=== PATIENT | male | born 1985 | race Caucasian/White ===

== ENCOUNTER 2024-03-08 21:47 | Emergency (ER) | payer SELFPAY ==
[2024-03-08 22:29] LABS: BASOPHILS ABSOLUTE AUTO 0.05 10^3/uL (0.00-0.50); BASOPHILS PERCENT AUTO 0.7 % (0-1); EOSINOPHILS PERCENT AUTO 4.1 % (0-6); HEMATOCRIT 41.9 % (42.0-52.0); IMMATURE GRAN ABSOLUTE AUTO 0.01 10^3/uL (0.00-0.49); IMMATURE GRAN PERCENT AUTO 0.1 % (0.0-4.9); LYMPHOCYTES ABSOLUTE AUTO 2.37 10^3/uL (0.60-5.00); LYMPHOCYTES PERCENT AUTO 32.5 % (24-44); MEAN CORPUSCULAR HGB CONC 33.4 g/dL (32.0-36.0); MEAN CORPUSCULAR VOLUME 92.7 fL (83.0-97.0); MONOCYTES ABSOLUTE AUTO 0.37 10^3/uL (0.00-1.50); MONOCYTES PERCENT AUTO 5.1 % (0-10); NEUTROPHILS PERCENT AUTO 57.5 % (41-71); PLATELET COUNT,PLT 227 10^3/uL (150-400); RED BLOOD CELL COUNT 4.52 x10^6/uL (4.50-6.00); WHITE BLOOD CELL COUNT,WBC 7.3 10^3/uL (4.0-11.0)
[2024-03-08 22:46] LABS: ALANINE AMINOTRANSFERASE,ALT 30 U/L (12-78); ALBUMIN 3.9 g/dL (3.4-5.0); ALKALINE PHOSPHATASE 51 U/L (46-116); ASPARTATE AMNIOTRANSFERASE,AST 18 U/L (15-37); BILIRUBIN TOTAL 0.6 mg/dL (0.0-1.0); BLOOD UREA NITROGEN,BUN 11 mg/dL (7-18); CALCIUM 8.7 mg/dL (8.4-10.1); CARBON DIOXIDE,CO2 26 mmol/L (21-32); CHLORIDE,CL 104 mEq/L (98-106); CREATININE 1.1 mg/dL (0.7-1.3); EST CRCL DRUG DOSING (CG) 95.08 mL/min; GLUCOSE RANDOM 97 mg/dL (75-99); POTASSIUM,K 3.7 mEq/L (3.5-5.0); PRO B-TYPE NATRIUR PEPT,BNPPRO 62 pg/mL (0-1000); PROTEIN TOTAL,TP 7.2 g/dL (6.4-8.2); SODIUM,NA 142 mEq/L (136-145)
[2024-03-08 22:47] LABS: ESTIMATED GFR 87 mL/min (>=60)
[2024-03-08] MEDS: Sulfamethoxazole/Trimethoprim 800-160 MG Tab PO ONE (23:09)
== END 2024-03-08 23:12 | disposition home or self-care (01) ==
LOC: CC.ED 21:47
DX: K61.1 Rectal abscess (principal); R60.0 Localized edema; F17.210 Nicotine dependence, cigarettes, uncomplicated; Z79.899 Other long term (current) drug therapy
CPT/HCPCS: 36415; 80053; 83735; 83880; 84484; 85025; 85379; 93005; 99284; A9270-GY